=== PATIENT | female | born 1990 | race Hispanic/Latino ===

== ENCOUNTER 2022-07-22 13:38 | Outpatient (CLI) | payer OTHER | END 2022-07-22 13:39 | disposition home or self-care (01) | LOC: CSHULT 13:38 | PROVIDERS: ATTEND Family Medicine | DX: Z34.02 Encounter for supervision of normal first pregnancy, second trimester (principal); Z3A.24 24 weeks gestation of pregnancy | CPT/HCPCS: 76805 ==

== ENCOUNTER 2022-11-06 21:27 | Inpatient (IN) | payer MEDICAID, OTHER ==
[2022-11-06] MEDS ORDERED: hydrALAZINE 20 MG/ML VIAL SLOW IVP PRN (22:15)
[2022-11-06 23:33] VITALS: BMI 25.0
[2022-11-06] MEDS ORDERED: Lactated Ringer's 1,000 ML IV SCH (23:59)
[2022-11-07] MEDS ORDERED: Ondansetron PF 4 MG/2 ML Vial IVP PRN ×2 (00:08→01:42)
[2022-11-07] MEDS ORDERED: Docusate 100 MG CAP PO PRN (00:08)
[2022-11-07] MEDS ORDERED: Diphenoxylate HCl/Atropine Tablet PO PRN (00:08)
[2022-11-07] MEDS ORDERED: Tranexamic Acid 1,000 MG/10 ML VIAL IVP PRN (00:08)
[2022-11-07] MEDS ORDERED: Acetaminophen 500 MG TAB PO PRN (00:08)
[2022-11-07] MEDS ORDERED: fentaNYL 50 mcg/mL 1 mL Vial SLOW IVP PRN (00:08)
[2022-11-07] MEDS ORDERED: Promethazine HCl 25 MG/ML VIAL IM PRN ×2 (00:08→01:42)
[2022-11-07] MEDS ORDERED: Misoprostol 200 MCG TAB PR PRN (00:08)
[2022-11-07] MEDS ORDERED: Carboprost 250 MCG/ML AMP IM PRN (00:08)
[2022-11-07] MEDS ORDERED: Methylergonovine 0.2 MG/ML VIAL IM PRN (00:08)
[2022-11-07] MEDS ORDERED: Ibuprofen 800 MG TAB PO PRN (00:10)
[2022-11-07] MEDS ORDERED: Lidocaine 1% (PF) 30 ML VIAL SC PRN (00:10)
[2022-11-07] MEDS ORDERED: Dextrose 5%-Lactated Ringers 1,000 ML IV SCH (00:15)
[2022-11-07] MEDS ORDERED: Penicillin G Potassium 5 MILL.UNITS in Sodium Chloride 0.9% 100 ML IVPB SCH (00:15)
[2022-11-07] MEDS ORDERED: NS w/ Oxytocin 30 units 500 ML IV SCH ×2 (00:15)
[2022-11-07 00:24] LABS: Hematocrit 38.9 % (34.9-44.5); Hemoglobin 13.3 g/dL (12.0-15.5); Mean Corpuscular HGB CONC 34.2 g/dL (32.0-36.0); Mean Corpuscular Hemoglobin 31.7 pg (27.0-33.0); Mean Corpuscular Volume 92.6 fl (81.6-98.3); Mean Platelet Volume 12.6 fl (7.4-10.4); Platelet Count 270 10x3/uL (150-450); RBC Distribution Width 13.1 % (11.5-14.5); White Blood Cell (WBC) Count 9.8 10x3/uL (3.5-10.5)
[2022-11-07] MEDS ORDERED: fentaNYL/Ropivacaine Epidural 100 ML ONE (00:38)
[2022-11-07 00:54] LABS: HBSAg Index 0.18 S/CO (0-0.99); Hep B Surf Ag - L&D Non-Reactive S/CO (NonReactive); Syphilis Antibody Nonreactive (Nonreactive); Syphilis Antibody Index 0.02 S/CO (<1.00 Non-Reactive)
[2022-11-07] MEDS ORDERED: Lactated Ringer's 500 ML IV PRN (01:42)
[2022-11-07] MEDS ORDERED: Naloxone HCl 0.4 mg/ml Vial IVP PRN ×2 (01:42)
[2022-11-07] MEDS ORDERED: Moisturizing Cream (Eucerin) 113 GM JAR TOP PRN (01:42)
[2022-11-07] MEDS ORDERED: diphenhydrAMINE 50 MG/ML VIAL IVP PRN (01:42)
[2022-11-07] MEDS ORDERED: Acetaminophen 325 MG TAB PO PRN (01:42)
[2022-11-07] MEDS ORDERED: ePHEDrine Sulfate 50 MG/10 ML VIAL SLOW IVP PRN (01:42)
[2022-11-07] MEDS ORDERED: fentaNYL 2 mcg/Ropivacaine 0.2% Epidural 100 ML CADD EPIDURAL SCH (01:45)
[2022-11-07] MEDS ORDERED: Communication Order-Pharmacy FS SCH (01:45)
[2022-11-07] MEDS: Penicillin G 2.5 MILL.units 2.5 MILL.UNITS in Premix Bag 1 BAG IVPB SCH ×3 (05:21→14:04)
[2022-11-07] MEDS ORDERED: ePHEDrine Sulfate 50 MG/10 ML VIAL ONE (15:00)
[2022-11-07] MEDS ORDERED: Lanolin Ointment 7 GM TUBE TOP PRN (21:41)
[2022-11-07] MEDS ORDERED: Bisacodyl 10 MG SUPP PR PRN (21:41)
[2022-11-07] MEDS ORDERED: hydrALAZINE 20 MG/ML VIAL SLOW IVP PRN (21:41)
[2022-11-07] MEDS ORDERED: Milk Of Magnesia 30 ML UDCUP PO PRN (21:41)
[2022-11-07] MEDS ORDERED: Boostrix 0.5 ML (Tdap) VIAL (>/=7 yrs of age) IM ONE (21:41)
[2022-11-07] MEDS ORDERED: Docusate 100 MG CAP PO SCH (22:00)
[2022-11-07] MEDS ORDERED: Ferrous Sulfate 325 MG TAB PO SCH (22:00)
[2022-11-07] MEDS: Docusate 100 MG CAP PO SCH (23:31)
[2022-11-07] MEDS: HYDROcodone/Acetaminophen 5/325 mg Tablet PO PRN (23:32)
[2022-11-08] MEDS: HYDROcodone/Acetaminophen 5/325 mg Tablet PO PRN ×2 (05:09→16:24)
[2022-11-08] MEDS: Prenatal Vitamin 1 TAB PO SCH (08:17)
[2022-11-08] MEDS: Docusate 100 MG CAP PO SCH ×2 (08:17→22:19)
[2022-11-08] MEDS: Ferrous Sulfate 325 MG TAB PO SCH ×2 (08:18→13:27)
[2022-11-08] MEDS: Ibuprofen 800 MG TAB PO SCH (22:19)
[2022-11-09] MEDS: Ibuprofen 800 MG TAB PO SCH (05:48)
[2022-11-09] MEDS: Docusate 100 MG CAP PO SCH (09:04)
[2022-11-09] MEDS: Prenatal Vitamin 1 TAB PO SCH (09:05)
[2022-11-09 09:31] VITALS: BP 111/56; TEMP 98.5
[2022-11-09] MEDS: Ferrous Sulfate 325 MG TAB PO SCH (09:31)
== END 2022-11-09 11:00 | disposition home or self-care (01) | DRG 807 ==
LOC: CSHLD/OP 21:27 → CSHLD 11-07 00:06 → CSHPP 11-07 19:35
PROVIDERS: ADMIT Family Medicine; ATTEND Family Medicine
PROC: 10E0XZZ Delivery of Products of Conception, External Approach (ICD-10-PCS; principal; 2022-11-07)
PROC: 10907ZC Drainage of Amniotic Fluid, Therapeutic from Products of Conception, Via Natural or Artificial Opening (ICD-10-PCS; 2022-11-07)
PROC: 10H07YZ Insertion of Other Device into Products of Conception, Via Natural or Artificial Opening (ICD-10-PCS; 2022-11-07)
PROC: 0UQGXZZ Repair Vagina, External Approach (ICD-10-PCS; 2022-11-07)
DX: O99.824 Streptococcus B carrier state complicating childbirth (principal); Z37.0 Single live birth; O62.2 Other uterine inertia; Z3A.39 39 weeks gestation of pregnancy; O76 Abnormality in fetal heart rate and rhythm complicating labor and delivery; O71.4 Obstetric high vaginal laceration alone
CPT/HCPCS: 36415; 51702; 85027; 86780; 86850; 86900; 86901; 87340; 99285; J2540; J2590; J3490

== ENCOUNTER 2024-12-01 12:39 | Outpatient (CLI) | payer OTHER | END 2024-12-01 12:40 | disposition home or self-care (01) | LOC: CSHULT 12:39 | PROVIDERS: ATTEND Family Medicine | DX: O09.893 Supervision of other high risk pregnancies, third trimester (principal); Z3A.32 32 weeks gestation of pregnancy | CPT/HCPCS: 76805 ==

== ENCOUNTER 2024-12-16 20:32 | Inpatient (IN) | payer OTHER, SELFPAY ==
[2024-12-16 20:46] VITALS: BMI 29.2
[2024-12-16] MEDS ORDERED: hydrALAZINE 20 MG/ML VIAL SLOW IVP PRN ×2 (21:15→21:55)
[2024-12-16 21:49] LABS: Fetal Membranes Rupture RUPTURE DETECTED (No Rupture)
[2024-12-16] MEDS ORDERED: Lidocaine 1% (PF) 30 ML VIAL SC PRN (21:55)
[2024-12-16] MEDS ORDERED: Acetaminophen 500 MG TAB PO PRN (21:55)
[2024-12-16] MEDS ORDERED: Tranexamic Acid 1,000 MG/10 ML VIAL IVP PRN (21:55)
[2024-12-16] MEDS ORDERED: Diphenoxylate HCl/Atropine Tablet PO PRN (21:55)
[2024-12-16] MEDS ORDERED: Methylergonovine 0.2 MG/ML VIAL IM PRN (21:55)
[2024-12-16] MEDS ORDERED: Carboprost 250 MCG/ML AMP IM PRN (21:55)
[2024-12-16] MEDS ORDERED: Ondansetron PF 4 MG/2 ML Vial IVP PRN (21:55)
[2024-12-16] MEDS ORDERED: Oxytocin 30 units/NS 500 ML 500 ML IV SCH (22:00)
[2024-12-16 22:51] LABS: Hematocrit 36.2 % (34.9-44.5); Hemoglobin 11.7 g/dL (12.0-15.5); Mean Corpuscular Hemoglobin 28.3 pg (27.0-33.0); Mean Corpuscular Volume 87.7 fL (81.6-98.3); Platelet Count 311 10x3/uL (150-450); Red Blood Cell (RBC) Count 4.13 10x6/uL (3.90-5.03); White Blood Cell (WBC) Count 9.07 10x3/uL (3.5-10.5)
[2024-12-16] MEDS: Penicillin G Potassium 5 MILL.UNITS in Sodium Chloride 0.9% 100 ML IVPB SCH (22:55)
[2024-12-16 23:26] LABS: Hep B Surf Ag - L&D Non-Reactive S/CO (NonReactive)
[2024-12-16 23:27] LABS: Syphilis Antibody Index 0.04 S/CO (<1.00 Non-Reactive)
[2024-12-17] MEDS: Penicillin G 2.5 MILL.units 2.5 MILL.UNITS in Premix 1 BAG IVPB SCH (03:34)
[2024-12-17] MEDS: Oxytocin 30 units/NS 500 ML 500 ML IV SCH (04:58)
[2024-12-17] MEDS: fentaNYL/Ropivacaine Epidural 100 ML ONE (07:11)
[2024-12-17] MEDS ORDERED: diphenhydrAMINE 50 MG/ML VIAL IVP PRN (07:28)
[2024-12-17] MEDS ORDERED: Ondansetron PF 4 MG/2 ML Vial IVP PRN ×2 (07:28→12:53)
[2024-12-17] MEDS ORDERED: fentaNYL 2 mcg/Ropivacaine 0.2% Epidural 100 ML CADD EPIDURAL SCH (07:30)
[2024-12-17] MEDS ORDERED: Communication Order-Pharmacy FS SCH (07:30)
[2024-12-17] MEDS: Ibuprofen 800 MG TAB PO PRN (12:46)
[2024-12-17] MEDS ORDERED: Lanolin Ointment 7 GM TUBE TOP PRN (12:53)
[2024-12-17] MEDS ORDERED: Bisacodyl 10 MG SUPP PR PRN (12:53)
[2024-12-17] MEDS ORDERED: diphenhydrAMINE 25 MG CAP PO PRN (12:53)
[2024-12-17] MEDS ORDERED: hydrALAZINE 20 MG/ML VIAL SLOW IVP PRN (12:53)
[2024-12-17] MEDS ORDERED: Benzocaine-Menthol 82.5 ML CAN TOP PRN (12:53)
[2024-12-17] MEDS ORDERED: Milk Of Magnesia 30 ML UDCUP PO PRN (12:53)
[2024-12-17] MEDS: Boostrix 0.5 ML (Tdap) VIAL (>/=7 yrs of age) IM ONE (13:48)
[2024-12-17] MEDS ORDERED: Bupivacaine 0.25% HCL 30 ML VIAL ONE (14:16)
[2024-12-17] MEDS: Acetaminophen 325 MG TAB PO PRN (19:23)
[2024-12-17] MEDS: Ibuprofen 800 MG TAB PO SCH (21:18)
[2024-12-18] MEDS: Ferrous Sulfate 325 MG TAB PO SCH (07:14)
[2024-12-18] MEDS ORDERED: HYDROcodone/Acetaminophen 5/325 mg Tablet PO PRN (07:30)
[2024-12-18 08:20] VITALS: BP 110/62; TEMP 98.4
== END 2024-12-18 12:30 | disposition home or self-care (01) | DRG 807 ==
LOC: CSHLD/OP 20:32 → CSHLD 22:06 → CSHPP 12-17 13:04
PROVIDERS: ADMIT Family Medicine; ATTEND Family Medicine
PROC: 10E0XZZ Delivery of Products of Conception, External Approach (ICD-10-PCS; principal; 2024-12-17)
DX: O42.02 Full-term premature rupture of membranes, onset of labor within 24 hours of rupture (principal); Z37.0 Single live birth; O99.824 Streptococcus B carrier state complicating childbirth; Z3A.39 39 weeks gestation of pregnancy
CPT/HCPCS: 51702; 84112; 85027; 86780; 86850; 86900; 86901; 87340; 87480; 87510; 87660; 99285; J0665; J2540; J2590; J7120